=== PATIENT | male | born 1955 | race African-American/Black ===

== ENCOUNTER 2023-09-09 02:04 | Emergency (ER) | payer BC ==
[~2023-09-09] VITALS: Ht 170.2 cm; Wt 78.0 kg
[2023-09-09 02:10] VITALS: O2SAT 99
[2023-09-09] MEDS ORDERED: KETOROLAC 30MG/ML VIAL IM ONE (02:30)
[2023-09-09] MEDS ORDERED: IBUP-2028 MT (02:36)
[2023-09-09] MEDS ORDERED: KETOROLAC 30MG/ML VIAL IM NR (02:45)
[2023-09-09 03:00] VITALS: BP 128/80
[2023-09-09 03:02] VITALS: PULSE 90; RESP 18; TEMP 98.2
== END 2023-09-09 03:04 | disposition home or self-care (01) ==
LOC: ER 02:15
DX: S16.1XXA Strain of muscle, fascia and tendon at neck level, initial encounter (principal); V49.9XXA Car occupant (driver) (passenger) injured in unspecified traffic accident, initial encounter; Y93.89 Activity, other specified; Y92.89 Other specified places as the place of occurrence of the external cause; Y99.8 Other external cause status
CPT/HCPCS: 99283; 96372; J1885